=== PATIENT | male | born 1990 | race Caucasian/White ===

== ENCOUNTER 2019-08-18 11:34 | Emergency (ER) | payer SELFPAY ==
[2019-08-18] MEDS ORDERED: Lorazepam 2 MG/ML VIAL ONE (12:13)
[2019-08-18] MEDS ORDERED: Aspirin Chewable 81 MG TAB ONE (12:14)
[2019-08-18] MEDS ORDERED: Sodium Chloride 0.9% 1,000 ML ONE (12:14)
[2019-08-18 12:28] LABS: ALT (SGPT) 34 U/L (8-55); AST (SGOT) 23 U/L (5-34); Albumin 4.9 g/dL (3.5-5.0); Alkaline Phosphatase 71 U/L (40-110); Anion Gap 15 mmol/L (10-20); BUN (Urea Nitrogen) 14 mg/dL (8.9-20.6); Bilirubin, Total 0.7 mg/dL (0.2-1.2); Calc. Creatinine Clearance 0 mL/min (70-130); Calcium 9.7 mg/dL (7.8-10.44); Carbon Dioxide 21 mmol/L (22-29); Chloride 105 mmol/L (98-107); Estimated GFR-MDRD 72; Globulin 2.8 g/dL (2.4-3.5); Glucose 114 mg/dL (70-105); Lipase 28 U/L (8-78); Potassium 4.2 mmol/L (3.5-5.1); Protein, Total 7.7 g/dL (6.0-8.3); Sodium 137 mmol/L (136-145)
[2019-08-18 12:38] LABS: #Lymphocytes 1.7 thou/uL (1.20-3.40); #Monocytes 0.4 thou/uL (0.11-0.59); #Neutrophils 5.1 thou/uL (1.40-6.50); %Basophils 0.6 % (0.0-1.0); %Eosinophils 0.6 % (0.0-10.0); %Lymphocytes 22.7 % (21.0-51.0); Hemoglobin 12.8 g/dL (14.0-18.0); Mean Corpuscular HGB CONC 27.9 g/dL (32.0-36.0); Platelet Count 177 thou/uL (130-400); RBC Distribution Width 13.7 % (11.5-14.5); Red Blood Cell (RBC) Count 6.73 mill/uL (4.70-6.10); White Blood Cell (WBC) Count 7.3 thou/uL (4.8-10.8)
[2019-08-18 12:39] LABS: MDiff Complete? YES; Microcytosis SLIGHT = 6-15 cells (100X) (0-5/hpf); Platelet Morphology Comment Appears Adequate
--- NOTE | 2019-08-18 13:37 | RAD ---
PORTABLE CHEST: HISTORY: Chest pain. FINDINGS: Lung arredondo are clear. Heart and mediastinum appear normal. Vasculature normal. IMPRESSION: Negative portable chest. POS: AGW
--- NOTE | 2019-08-18 14:08 | CT ---
CT ABDOMEN AND PELVIS WITHOUT IV CONTRAST: 08/18/19 INDICATIONS: Abdominal pain. FINDINGS: Lung bases are clear. Liver, spleen, and pancreas unremarkable for an unenhanced exam. Stomach and d uodenum unremarkable. Adrenal glands normal. Kidneys are unremarkable. There is no evidence of urinary tract calculus or obstruction. No hydroneph rosis. Urinary bladder is distended and unremarkable. Small bowel loops are normal caliber. Appendix appears normal. Colon unremarkable. Scattered divertic jordan. Aorta and retroperitoneum appear unremarkable. No adenopathy or free fluid. Osseous structures u nremarkable. IMPRESSION: No acute abnormality identified. POS: AGW
--- NOTE | 2019-08-18 14:25 | CT ---
CT HEAD WITHOUT CONTRAST: 08/18/19 INDICATIONS: Syncope. The ventricles have normal size and position. There is no evidence of intracranial hemorrhage, mass, infarct, or other acute process. The sinuses and mastoids appear clear. IMPRESSION: No acute finding. POS: AGW
[2019-08-18 14:37] LABS: Bilirubin Negative (Negative); Blood, Urine Negative (Negative); Clarity Clear (Clear); Glucose, Urine (Dipstick) Negative (Negative); Leukocyte Negative (Negative); Nitrite Negative (Negative); Protein, Urine (Dipstick) Negative (Neg-Trace); Urobilinogen 0.2 mg/dL (Less than 2)
== END 2019-08-18 15:05 | disposition home or self-care (01) ==
LOC: NAV ERS 11:34
DX: F41.9 Anxiety disorder, unspecified (principal); R07.9 Chest pain, unspecified; R55 Syncope and collapse; R10.814 Left lower quadrant abdominal tenderness; R10.813 Right lower quadrant abdominal tenderness; J42 Unspecified chronic bronchitis; Z87.891 Personal history of nicotine dependence
CPT/HCPCS: 70450; 71045; 74176; 80053; 81003; 83690; 84484; 85025; 85379; 93005; 94760; 96361; 96374; J2060; J7050